=== PATIENT | female | born 1955 | race Caucasian/White ===

== ENCOUNTER 2018-07-18 12:41 | Day surgery (SDC) | payer OTHER ==
[2018-07-14 11:50] VITALS: BMI 54.6
--- NOTE | 2018-07-17 17:03 | P.GSHP ---
History of Present Illness H&P Date: 07/18/18 CHIEF COMPLAINT: GERD HISTORY OF PRESENT ILLNESS: The patient is a 63-year-old female who presents reports gastroesophageal reflux disease. Upper endoscopy was offered for further evaluation and management. PAST MEDICAL HISTORY: Please see list. PAST SURGICAL HISTORY: Please see list. MEDICATIONS: Please see list. ALLERGIES: Please see list. SOCIAL HISTORY: No illicit drug use FAMILY HISTORY: No reports of Crohn disease or ulcerative colitis. REVIEW OF ORGAN SYSTEMS: CONSTITUTIONAL: No reports of fevers or chills. GI: Denies any blood in stools or constipation. PHYSICAL EXAM: VITAL SIGNS: Stable GENERAL: Well-developed and pleasant in no acute distress. HEENT: No scleral icterus. Extraocular movements grossly intact. Moist buccal mucosa. NECK: Supple without lymphadenopathy. CHEST: Unlabored respirations. Equal bilateral excursions. CARDIOVASCULAR: Regular rate and rhythm. Distal 2+ pulses. ABDOMEN: Soft, nondistended. MUSCULOSKELETAL: No clubbing, cyanosis, or edema. ASSESSMENT: 1. Gastroesophageal reflux disease PLAN: 1. Recommend proceeding with an upper endoscopy Past Medical History Past Medical History: GERD/Reflux Additional Past Medical History / Comment(s): SWELLING IN FEET, OCCASIONAL RASH IN FOLDS OF SKIN. History of Any Multi-Drug Resistant Organisms: None Reported Past Surgical History: Cholecystectomy, Hysterectomy Past Anesthesia/Blood Transfusion Reactions: No Reported Reaction Past Psychological History: Anxiety, Depression Smoking Status: Never smoker Past Alcohol Use History: None Reported Past Drug Use History: None Reported - Past Family History Mother Family Medical History: Cancer Father Family Medical History: Cancer, Diabetes Mellitus Medications and Allergies Home Medications Medication Instructions Recorded Confirmed Type Anxiety/Antidepressant 1 tab PO DAILY 07/14/18 History Hydrochlorothiazide (Unk Dose) 1 tab PO DAILY 07/14/18 History Ranitidine (Unknown Dose) 1 tab PO DAILY 07/14/18 History Allergies Allergy/AdvReac Type Severity Reaction Status Date / Time No Known Allergies Allergy Verified 07/14/18 11:18
[~2018-07-18 12:41] MED LIST: LACTATED RINGERS 1,000 ML IV SCH
[2018-07-18] MEDS ORDERED: LIDOCAINE 1% 20 ML VIAL (10MG/ML) FOR IV START INTRADERMA ONE (13:39)
[2018-07-18 13:41] VITALS: TEMP 98.2
[2018-07-18] MEDS ORDERED: PROPOFOL 10 MG/ML 20 ML VIAL IV ONE (14:47)
--- NOTE | 2018-07-18 15:00 | P.PCN ---
Date of Procedure: 07/18/18 Description of Procedure: PREOPERATIVE DIAGNOSIS: Gastroesophageal reflux disease. Morbid obesity. POSTOPERATIVE DIAGNOSIS: Morbid obesity. Gastritis, with recent bleeding Acute gastric ulcer along antrum remission bleeding Esophageal ulcer with severe erosive esophagitis Gastroesophageal reflux disease. Diaphragmatic hiatal hernia without obstruction. OPERATION: Esophagogastroduodenoscopy with biopsies along antrum. SURGEON: Nell Dimas MD ANESTHESIA: MAC. INDICATIONS: The patient is a 63-year-old female who presents with a history of reflux disease. Benefits and risks of the procedure were described. Informed consent was obtained. DESCRIPTION: The patient was brought into the endoscopy suite and laid in the left lateral decubitus position. An Olympus gastroscope was passed along the posterior oropharynx down to the distal esophagus where the squamocolumnar junction was encountered at 35 cm from the incisors. The stomach was entered and no bile reflux was found. Additional findings are listed below. Biopsies with cold forceps were obtained of the antrum. The first through third portion of the duodenum was examined and unremarkable. Retroflexion of the scope confirmed Hill grade 4 lower esophageal valve. The squamocolumnar junction demonstrated acute LA grade C erosive esophagitis. The stomach was desufflated. The patient tolerated the procedure well. FINDINGS: Squamocolumnar junction 35 cm from the incisors. Diaphragmatic hiatus at 40 cm. Hiatal hernia 5 cm. Hill grade 4 lower esophageal valve. LA grade C erosive esophagitis. Acute active gastritis or recent bleed Gastric ulcer, acute along antrum deep base 5 mm in size, biopsy obtained Acute erosive esophagitis with distal esophageal ulcers No active duodenitis. RECOMMENDATIONS: Upper endoscopy as needed. Will benefit from antireflux surgical procedure Plan - Discharge Summary New Discharge Prescriptions: No Action Ranitidine HCl 1 tab PO BID Hydrochlorothiazide [Hydrodiuril] 1 tab PO DAILY buPROPion HCL [Wellbutrin SR] 1 tab PO BID Discharge Medication List Hydrochlorothiazide [Hydrodiuril] 1 tab PO DAILY 07/18/18 [History] Ranitidine HCl 1 tab PO BID 07/18/18 [History] buPROPion HCL [Wellbutrin SR] 1 tab PO BID 07/18/18 [History]
[2018-07-18 15:12] VITALS: PULSE 73; RESP 18
[2018-07-18 15:30] VITALS: BP 138/78
== END 2018-07-18 15:46 | disposition home or self-care (01) ==
LOC: ORWHC2ENDO 12:41
PROVIDERS: ATTEND Surgery Plastic and Reconstructive Surgery
DX: K29.71 Gastritis, unspecified, with bleeding (principal); K25.0 Acute gastric ulcer with hemorrhage; K22.10 Ulcer of esophagus without bleeding; K21.9 Gastro-esophageal reflux disease without esophagitis; K44.9 Diaphragmatic hernia without obstruction or gangrene; I10 Essential (primary) hypertension; E66.01 Morbid (severe) obesity due to excess calories; Z68.43 Body mass index [BMI] 50.0-59.9, adult; Z79.899 Other long term (current) drug therapy
CPT/HCPCS: 88305; 43239; J2704

== ENCOUNTER → 2018-07-20 | Outpatient (CLI) | payer OTHER ==
[2018-07-20 16:52] VITALS: BP 166/95; PULSE 107; RESP 16; TEMP 97.7; BMI 54.6
[2018-07-20 17:50] LABS: HCT 44.2 % (34.0-46.0); HGB 14.9 gm/dL (11.4-16.0); MCH 29.2 pg (25.0-35.0); MCHC 33.7 g/dL (31.0-37.0); MCV 86.5 fL (80.0-100.0); Mean Platelet Volume 7.5; Platelet Count 284 k/uL (150-450); RBC 5.11 m/uL (3.80-5.40); RDW 14.4 % (11.5-15.5); WBC 9.7 k/uL (3.8-10.6)
[2018-07-20 18:24] LABS: Calcium 9.7 mg/dL (8.4-10.2); Potassium 4.1 mmol/L (3.5-5.1); Total Bilirubin 0.6 mg/dL (0.2-1.3); Total Protein 6.5 g/dL (6.3-8.2)
--- NOTE | 2018-07-20 21:18 | P.HPBAR ---
Bariatric H&P - History & Physicial H&P Date: 07/20/18 History & Physicial: Visit/CC: Hernia Repair/Pursuing surgery after Patient initial contact: Initial weight: 126.722 kg Initial weight in pounds: 279.38 Height: 5 ft Initial BMI: 54.6 Last weight: Current weight: 126.722 kg Current weight in pounds: 279.38 Current BMI: 54.6 [place] body weight (based on NIH guidelines): 45.359 kg Excess body weight loss: 0.0% The patient is a 63 year-old F who presents for Bariatric Assessment. HPI: The patient is a 63-year-old female who comes in with morbid obesity. She' s had lifelong problems with her obesity. She completed upper endoscopy with findings of a symptomatic large hiatal hernia including gastric ulcers, erosive esophagitis. She is looking into gastric bypass. ABDOMEN: Mild tenderness along the epigastrium PLAN: 1. Bariatric labs including EKG 2. Recommend hiatal hernia repair with severity of her symptoms. In the interim, gastric bypass evaluation pending 3. Will need seminar information. Past Medical History Past Medical History: GERD/Reflux Additional Past Medical History / Comment(s): SWELLING IN FEET, OCCASIONAL RASH IN FOLDS OF SKIN. History of Any Multi-Drug Resistant Organisms: None Reported Past Surgical History: Cholecystectomy, Hysterectomy Past Anesthesia/Blood Transfusion Reactions: No Reported Reaction Past Psychological History: Anxiety, Depression Smoking Status: Never smoker Past Alcohol Use History: None Reported Past Drug Use History: None Reported - Past Family History Mother Family Medical History: Cancer Father Family Medical History: Cancer, Diabetes Mellitus Surgical - Exam Vital Signs Temp Pulse Resp BP 97.7 F 107 H 16 166/95 07/20/18 16:48 07/20/18 16:48 07/20/18 16:48 07/20/18 16:48 Results - Labs 07/20/18 17:29 07/20/18 17:29 Abnormal Lab Results - Last 24 Hours (Table) 07/20/18 Range/Units 17:29 Triglycerides 240 H (<150) mg/dL Diabetes panel 07/20/18 Range/Units 17:29 Sodium 139 (137-145) mmol/L Potassium 4.1 (3.5-5.1) mmol/L Chloride 103 (98-107) mmol/L Carbon Dioxide 30 (22-30) mmol/L BUN 12 (7-17) mg/dL Creatinine 0.86 (0.52-1.04) mg/dL Glucose 95 (74-99) mg/dL Calcium 9.7 (8.4-10.2) mg/dL AST 22 (14-36) U/L ALT 32 (9-52) U/L Alkaline Phosphatase 60 (38-126) U/L Total Protein 6.5 (6.3-8.2) g/dL Albumin 4.0 (3.5-5.0) g/dL Triglycerides 240 H (<150) mg/dL HDL Cholesterol 48 (40-60) mg/dL Thyroid panel 07/20/18 Range/Units 17:29 TSH 2.820 (0.465-4.680) mIU/L Calcium panel 07/20/18 Range/Units 17:29 Calcium 9.7 (8.4-10.2) mg/dL Albumin 4.0 (3.5-5.0) g/dL Pituitary panel 07/20/18 Range/Units 17:29 Sodium 139 (137-145) mmol/L Potassium 4.1 (3.5-5.1) mmol/L Chloride 103 (98-107) mmol/L Carbon Dioxide 30 (22-30) mmol/L BUN 12 (7-17) mg/dL Creatinine 0.86 (0.52-1.04) mg/dL Glucose 95 (74-99) mg/dL Calcium 9.7 (8.4-10.2) mg/dL TSH 2.820 (0.465-4.680) mIU/L Adrenal panel 07/20/18 Range/Units 17:29 Sodium 139 (137-145) mmol/L Potassium 4.1 (3.5-5.1) mmol/L Chloride 103 (98-107) mmol/L Carbon Dioxide 30 (22-30) mmol/L BUN 12 (7-17) mg/dL Creatinine 0.86 (0.52-1.04) mg/dL Glucose 95 (74-99) mg/dL Calcium 9.7 (8.4-10.2) mg/dL Total Bilirubin 0.6 (0.2-1.3) mg/dL AST 22 (14-36) U/L ALT 32 (9-52) U/L Alkaline Phosphatase 60 (38-126) U/L Total Protein 6.5 (6.3-8.2) g/dL Albumin 4.0 (3.5-5.0) g/dL Bariatric Checklist Checklist: Plan: Checklist: EGD: 1. Hiatal hernia: 2. H. Pylori: HgbA1c: Vitamin D: Smoking: Never smoker Primary care physician referral: Psychiatry clearance: Cardiology clearance: Sleep study: Diet journal: VTE risk score: VTE risk level: Rehab needs at discharge:
[2018-07-21 00:41] LABS: Iron Saturation 12.06 (12.00-45.00)
[2018-07-21 00:51] LABS: Vitamin D 25 Hydroxy 30.1 ng/mL (30.0-100.0)
[2018-07-21 01:05] LABS: Folate, Serum 13.6 ng/mL
== END | disposition home or self-care (01) ==
LOC: BARWHC3 15:00
PROVIDERS: ATTEND Surgery Plastic and Reconstructive Surgery
DX: E66.01 Morbid (severe) obesity due to excess calories (principal); K21.9 Gastro-esophageal reflux disease without esophagitis; E88.81 Metabolic syndrome and other insulin resistance; E44.0 Moderate protein-calorie malnutrition; E55.9 Vitamin D deficiency, unspecified; I11.9 Hypertensive heart disease without heart failure; G47.30 Sleep apnea, unspecified; Z68.43 Body mass index [BMI] 50.0-59.9, adult; Z90.49 Acquired absence of other specified parts of digestive tract; Z90.710 Acquired absence of both cervix and uterus
CPT/HCPCS: 84425; 80061; 80053; 82607; 82728; 82746; 83540; 83550; 84443; 85027; 82306; 83036; 93005; 36415; G0463; 99201